=== PATIENT | female | born 1950 | race African-American/Black ===

== ENCOUNTER 2017-10-05 09:52 | Inpatient (IN) | payer MEDICARE, OTHER ==
[~2017-10-05] VITALS: Ht 165.1 cm; Wt 62.1 kg
[~2017-10-05 09:52] MED LIST: CALC-889; MONT10TA24; NIFE60TA94; RANI-369; SIMV20TA2
[2017-10-05 10:47] LABS: BASOPHILS % 0.5 % (0.0-2.0); EOSINOPHILS % 1.2 % (0.0-5.0); HEMATOCRIT. 40.1 % (36.0-48.0); HEMOGLOBIN. 13.6 g/dL (12.0-16.0); LYMPHOCYTES % 40.6 % (20.0-50.0); MEAN CORPUSCULAR HEMOGLOBIN 29.6 pg (28.0-32.0); MEAN CORPUSCULAR VOLUME 87.3 fL (81.0-99.0); MEAN PLATELET VOLUME 8.6 fl (7.4-10.4); NEUTROPHILS % 49.7 % (40.0-76.0); PLATELET 262 x1000/uL (130-400); RED BLOOD CELL COUNT 4.59 mill/uL (4.2-5.4); RED CELL DISTRIBUTION WIDTH 14.9 % (11.6-14.6)
[2017-10-05 10:53] LABS: PROTHROMBIN TIME 10.8 sec (9.4-11.6)
[2017-10-05 10:56] LABS: CHLORIDE 113 mEq/L (98-107)
[2017-10-05] MEDS ORDERED: ENALAPRIL 2.5MG/2ML VIAL 2ML IV ONE (11:45)
[2017-10-05 12:50] LABS: CLARITY URINE CLEAR (CLEAR); COLOR URINE YELLOW (YELLOW); KETONES URINE NEGATIVE (NEGATIVE); LEUKOCYTE ESTERASE URINE NEGATIVE (NEGATIVE); NITRITE URINE NEGATIVE (NEGATIVE); OCCULT BLOOD URINE NEGATIVE (NEGATIVE); PROTEIN URINE NEGATIVE (NEGATIVE); SPECIFIC GRAVITY URINE 1.021 (1.005-1.030); UROBILINOGEN URINE 0.2 E.U./dL (0.2-1.0)
[2017-10-05 13:25] LABS: *AMPHETAMINES SCREEN URINE NEGATIVE (NEGATIVE); *BARBITURATES SCREEN URINE NEGATIVE (NEGATIVE); *BENZODIAZEPINES SCREEN URINE NEGATIVE (NEGATIVE); *COCAINE SCREEN URINE NEGATIVE (NEGATIVE); CANNABINOID URINE SCREEN PRESUMTIVE POSITIVE (NEGATIVE); METHADONE URINE SCREEN NEGATIVE (NEGATIVE); OPIATES URINE SCREEN NEGATIVE (NEGATIVE); PHENCYCLIDINE URINE SCREEN NEGATIVE (NEGATIVE)
[2017-10-05] MEDS ORDERED: IPRATROPIUM/ALBUTEROL 0.5-3(2.5)MG/3ML NEB HHN PRN (15:30)
[2017-10-05] MEDS ORDERED: HYDROCODONE/ACETAMINOPHEN 5/325MG TABLET PO PRN ×2 (15:30→16:30)
[2017-10-05] MEDS ORDERED: CLONIDINE 0.1MG TABLET PO PRN (15:30)
[2017-10-05] MEDS ORDERED: ACETAMINOPHEN 325MG TABLET PO PRN (15:30)
[2017-10-05 15:40] VITALS: BP 162/76
[2017-10-05] MEDS ORDERED: ENAL20TA PO (16:59)
[2017-10-05] MEDS: NIFEDIPINE XL 60MG TAB PO SCH (17:00)
[2017-10-05] MEDS: ASPIRIN 81MG TABLET PO SCH (17:29)
[2017-10-05] MEDS ORDERED: ENOXAPARIN 40MG/0.4ML SYR SUBCUT SCH (18:00)
[2017-10-05 20:00] VITALS: BP 140/68
[2017-10-05] MEDS ORDERED: ATORVASTATIN CALCIUM 20MG TABLET PO SCH (21:00)
[2017-10-06] VITALS: BP 140/62
[2017-10-06 04:00] VITALS: BP 143/67
[2017-10-06 08:00] VITALS: BP 170/86
[2017-10-06] MEDS ORDERED: NICOTINE 14MG PATCH TD SCH (08:00)
[2017-10-06] MEDS: NIFEDIPINE XL 60MG TAB PO SCH (08:59)
[2017-10-06] MEDS: ASPIRIN 81MG TABLET PO SCH (09:00)
[2017-10-06] MEDS ORDERED: AMLODIPINE 10MG TABLET PO SCH (09:00)
[2017-10-06] MEDS ORDERED: AMLO10TA80 PO (10:46)
[2017-10-06] MEDS ORDERED: OMEP20TA2 PO (10:46)
[2017-10-06] MEDS ORDERED: LOSA100T14 PO (10:46)
[2017-10-06 12:00] VITALS: BP 158/79
[2017-10-06 14:09] VITALS: BP 116/72
[2017-10-07] MEDS ORDERED: NIFEDIPINE XL 90MG TAB PO SCH (09:00)
== END 2017-10-06 14:35 | disposition home or self-care (01) | DRG 201 ==
LOC: ER 10:23 → 8WST 11:29 → ENRESERV 12:02
PROVIDERS: ADMIT Internal Medicine; ATTEND Internal Medicine
DX: R00.1 Bradycardia, unspecified (principal); I10 Essential (primary) hypertension; E78.5 Hyperlipidemia, unspecified; J45.909 Unspecified asthma, uncomplicated; F12.90 Cannabis use, unspecified, uncomplicated; E78.00 Pure hypercholesterolemia, unspecified; K21.9 Gastro-esophageal reflux disease without esophagitis; F17.210 Nicotine dependence, cigarettes, uncomplicated; Z90.49 Acquired absence of other specified parts of digestive tract; Z88.0 Allergy status to penicillin; Z88.8 Allergy status to other drugs, medicaments and biological substances; Z79.899 Other long term (current) drug therapy
CPT/HCPCS: 36415; 71045; 80053; 80305; 81003; 82550; 82553; 83735; 84443; 85025; 85610; 93005; 99291; J1650